=== PATIENT | male | born 1940 | race Caucasian/White ===

== ENCOUNTER → 2016-11-10 | Day surgery (SDC) | payer MEDICARE, BC ==
[~2016-11-10] VITALS: Ht 185.4 cm; Wt 103.9 kg
[~2016-11-10] MED LIST: ACETAMINOPHEN 1000 MG/100 ML 100 ML IV ONE; CEPH-459 PO; CHLORHEXIDINE GLUCONATE 2 % 1 PACK (2 CLOTHS) TOPICAL PRN; CIPR-9 PO; DO NOT ADM ANY ANTICOAGULANT DRUGS PRN; FAMOTIDINE 20 MG/2 ML VIAL ONE; GLIP10TA6 PO; GLYCOPYRROLATE 1 MG/5 ML SYRINGE IV PUSH ONE; HYDR-3366 PO; INSULIN HUMAN REGULAR 1,000 UNITS/10 ML VIAL SQ PRN; IOHEXOL 350 MG/ML 50 ML BTL (for RAD DIAG) OTHER ONE; LACTATED RINGER'S 1000 ML IV PRN; LEVEMIR SQ; LIDOCAINE HCL 1% PF 5 ML AMPULE OTHER ONE; LOSA50TA PO; LUPR22.5 IM; METOPROLOL TARTRATE 25 MG TAB PO PRN; MIDAZOLAM HCL 2 MG/2 ML VIAL IV ONE; NEOSTIGMINE 3 MG/3 ML SYR IV ONE; ONDANSETRON HCL 4 MG/2 ML VIAL IV PUSH ONE; ONDANSETRON HCL 4 MG/2 ML VIAL IV PUSH PRN; PERC5TAB12 PO; POVIDONE IODINE 5% (ANTISEPSIS KIT) 4 APPLICATIONS EACH NARE PRN; PRAV80TA2 PO; PROPOFOL 200 MG/20 ML AMP IV ONE; ROCURONIUM INJ 50 MG/5 ML SYRINGE IV PUSH ONE; SODIUM CHLORID 0.9% 500 ML IV PRN; TAMS0.4C4 PO; ceFAZolin 2 GM PREMIX 50 ML IV SCH; ePHEDrine/NS 25 MG/5 ML SYR IV ONE; oxyCODONE/ACETAMINOPHEN 5 MG/325 MG TAB PO PRN
[2016-11-10 11:24] LABS: AUTOMATED NEUTROPHIL # 4.1 TH/MM3 (1.8-7.7); BASOPHIL % 0.4 % (0.0-2.0); EOSINOPHIL # 0.2 TH/MM3 (0-0.4); EOSINOPHIL % 2.8 % (0.0-4.0); HEMATOCRIT 35.2 % (39.0-51.0); HEMO FLAGS DIFF FINAL; LYMPH % 18.5 % (9.0-44.0); LYMPHOCYTE # 1.1 TH/MM3 (1.0-4.8); MEAN CELL VOLUME 87.2 FL (80.0-100.0); MEAN CORPUSCULAR HEMOGLOBIN 29.3 PG (27.0-34.0); MEAN CORPUSCULAR HGB CONC 33.6 % (32.0-36.0); NEUT % 69.3 % (16.0-70.0); PLATELET COUNT 285 TH/MM3 (150-450); RED BLOOD COUNT 4.04 MIL/MM3 (4.50-5.90); WHITE BLOOD COUNT 5.9 TH/MM3 (4.0-11.0)
--- NOTE | 2016-11-10 14:16 | EKG ---
Date Performed: 11/10/2016 Time Performed: 11:17:33 PTAGE: 76 years EKG: Sinus rhythm NORMAL ECG Compared to prior tracing no significant change PREVIOUS TRACING : 11/30/2015 10.25 DOCTOR: Norm Jimenez Interpretating Date/Time 11/10/2016 14:14:27
--- NOTE | 2016-11-10 14:33 | PD.OP ---
Operative Report Date of Surgery: Nov 10, 2016 Preoperative Diagnosis: (1) Ureteral obstruction, right Postoperative Diagnosis: (1) Bladder calculus (2) Bladder neck contracture (3) Ureteral obstruction, right Procedure: Cystoscopy, right ureteral stent exchange, right retrograde pyelogram, laser lithotripsy bladder calculus adherent to distal stent and transurethral resection bladder neck contracture. 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 Patient is being managed with an indwelling stent and presents now for his annual stent exchange. Operative procedure in detail:. Patient was brought to the operating room suite and placed supine on the cystoscopy table. He was then placed and general anesthesia. He was then repositioned in the dorsal lithotomy position and prepped and draped in normal sterile fashion. After appropriate timeout was undertaken I proceeded with cystoscopic evaluation utilizing the rigid cystoscope with a 20 [place] sheath and 30 lens. The urethra was patent with mild narrowing of the bulbar urethra that was dilated by virtue of passing the cystoscope. The prostatic urethra was nonobstructing however there was a bladder neck contracture noted. I then exchanged the cystoscope for the resectoscope with the 24 [place] cutting loop and proceeded with a transurethral resection of the bladder neck contracture. Once this was opened up I reutilized cystoscope and upon entry to urinary bladder the distal end of the right stent was seen with a large bladder calculus adherent within the coil of the loop. I then utilized the holmium laser with a 200 fiber and performed laser lithotripsy of this bladder calculus and freed it up from the stent. The calculus broken down to multiple small fragments which were evacuated with the bladder evacuator. I then grasped the distal end of the stent with possible forceps and delivered distended up to the point of the urethral meatus. The cystoscope was reintroduced and I passed a sensor wire alongside the right stent which was only partially removed at this point. I was able to advance the wire THE right renal pelvis with the wire replaced the stent was gently removed. It was carefully inspected ascertain that no stent fragments were left behind. I then proceeded with passing a 6 [place] open-ended ureteral catheter over the previously past wire and the wire was withdrawn. A retrograde pyelogram study was performed to outline the collecting system and then the guidewire was reintroduced into the open-ended catheter up to the right renal pelvis and the open-ended catheter was exchanged for a 24 cm 6 [place] optimal [facility] stent. The stent was placed under both cystoscopic and fluoroscopic guidance without difficulty. Once the stent was in proper position the trailing string was removed. A 22 [place] silicone Martin with 10 cc balloon was then placed and connected to gravity drainage. The patient tolerated the procedures without complications and was transferred to the PACU in satisfactory condition. Arnulfo Burris MD Nov 10, 2016 14:33
[2016-11-10 15:40] VITALS: BP 145/77; PULSE 65; RESP 16; TEMP 98.5; O2SAT 99
== END | disposition home or self-care (01) ==
LOC: HSDC 10:04
PROVIDERS: ATTEND Urology
DX: N21.0 Calculus in bladder (principal); N32.0 Bladder-neck obstruction; N13.5 Crossing vessel and stricture of ureter without hydronephrosis; Z85.46 Personal history of malignant neoplasm of prostate; E11.9 Type 2 diabetes mellitus without complications; I25.10 Atherosclerotic heart disease of native coronary artery without angina pectoris; E78.5 Hyperlipidemia, unspecified; K21.9 Gastro-esophageal reflux disease without esophagitis; Z92.3 Personal history of irradiation; Z79.4 Long term (current) use of insulin; Z01.810 Encounter for preprocedural cardiovascular examination; Z01.818 Encounter for other preprocedural examination
CPT/HCPCS: 00910; 52317; 52332; 52500; 74420; 82948; 85025; 93005; C1769; J0131; J0690; J1815; J2250; J2405; J2710; J3010; J7120; Q9967